=== PATIENT | female | born 1995 | race Caucasian/White ===

== ENCOUNTER 2018-04-19 11:33 | Emergency (ER) | payer BC, OTHER ==
[2018-04-19] MEDS ORDERED: LIDOCAINE 2% VISCOUS SOLN 20 ML UDCUP PO ONE (11:54)
--- NOTE | 2018-04-19 12:14 | ER Document Report ---
ED General - General Chief Complaint: Nausea Stated Complaint: COUGH Time Seen by Provider: 04/19/18 11:40 Notes: Patient is a 23-year-old female, currently approximately 5 weeks gravid that presents to the emergency department for chief complaint of cough and sore throat. Patient reports having symptoms for approximately 3 days, she states she did cough up some yellow sputum as well. She feels a tightness in her chest to a degree. She denies shortness of breath or difficulty breathing. She does have parasternal pain with coughing. Denies any fevers, chills, abdominal pain, vomiting, diarrhea, dysuria, hematuria, vaginal bleeding or discharge. Past Medical History: Denies chronic medical conditions Past Surgical History: Denies surgical history Social History: Denies tobacco, alcohol or illicit drug use Family History: Reviewed and noncontributory for presenting illness Allergies: Reviewed, see documented allergy list. REVIEW OF SYSTEMS: Other than noted above, the 12 point review of systems was reviewed with the patient and were negative, all pertinent findings are included in the HPI. PHYSICAL EXAMINATION: Vital signs reviewed, nursing noted reviewed. GENERAL: Well-appearing, well-nourished and in no acute distress. HEAD: Atraumatic, normocephalic. EYES: Eyes appear normal, extraocular movements intact, sclera anicteric, conjunctiva are normal. ENT: nares patent, oropharynx is mildly erythematous, with bilateral small tonsillar exudates. Moist mucous membranes. NECK: Normal range of motion, supple a few small prominent anterior cervical lymph nodes, without significant tenderness LUNGS: Breath sounds clear to auscultation bilaterally and equal. No wheezes rales or rhonchi. HEART: Regular rate and rhythm without murmurs ABDOMEN: Soft, nontender, normoactive bowel sounds. No rebound, guarding, or rigidity. No masses appreciated. EXTREMITIES: Nontender, good range of motion, no pitting or edema. NEUROLOGICAL: No focal neurological deficits. Moves all extremities spontaneously Motor and sensory grossly intact on exam. PSYCH: Normal mood, normal affect. SKIN: Warm, Dry, normal turgor, no rashes or lesions noted on exposed skin TRAVEL OUTSIDE OF THE [place] IN LAST 30 DAYS: No - Related Data Allergies/Adverse Reactions: ciprofloxacin [From Cipro] Adverse Reaction (Intermediate, Verified 04/19/18 11: 39) Light headed Past Medical History - Social History Smoking Status: Never Smoker Chew tobacco use (# tins/day): No Frequency of alcohol use: None Drug Abuse: None Family History: Reviewed & Not Pertinent Patient has suicidal ideation: No Patient has homicidal ideation: No Renal/ Medical History: Denies: Hx Peritoneal Dialysis Physical Exam - Vital signs Vitals: Temp Pulse Resp BP Pulse Ox 98.3 F 71 18 124/82 98 04/19/18 11:38 04/19/18 11:38 04/19/18 11:38 04/19/18 11:38 04/19/18 11:38 Course - Re-evaluation Re-evalutation: Patient appears well on exam, will swab her for strep, and influenza, obtain EKG given that she had chest tightness, that was related to her coughing. Will avoid chest x-ray as the patient is , and her lungs are clear, vital signs stable, not hypoxic, low suspicion for pneumonia. Patient will be given viscous lidocaine for her sore throat Influenza and strep testing negative Patient will be discharged home with a prescription for fluticasone nasal spray , to help with some of her symptoms including congestion, and sore throat, advised to follow-up with her primary care physician or with [facility] INSPECTOR, patient was agreeable to this plan of care, given strict return precautions, which she was agreeable to. - Vital Signs Vital signs: Temp Pulse Resp BP Pulse Ox 99.0 F 66 18 126/65 H 100 04/19/18 12:46 04/19/18 12:46 04/19/18 11:38 04/19/18 12:46 04/19/18 12:46 - EKG Interpretation by Me Additional EKG results interpreted by me: EKG demonstrates sinus rhythm with a ventricular rate of 70 bpm, normal axis, normal intervals, no evidence of acute ischemia on this EKG. No prior for comparison. Discharge - Discharge Clinical Impression: URI (upper respiratory infection) Qualifiers: URI type: unspecified URI Qualified Code(s): J06.9 - Acute upper respiratory infection, unspecified Condition: Stable Disposition: HOME, SELF-CARE Instructions: Upper Respiratory Illness ([facility]) Additional Instructions: If your symptoms worsen or do not improve, do not hesitate to return to the emergency department repeat evaluation. Prescriptions: Fluticasone Propionate [Flonase Nasal [place] 50 Mcg/[place] 16 gm] 1 spray NASL Q12 #1 inhaler Forms: Return to Work Referrals: SHUKRI SANCHEZ PA-C [Primary Care Provider] - Follow up in 3-5 days
[2018-04-19 12:26] LABS: A TYPE INFLUENZA AG NEGATIVE (NEGATIVE); B INFLUENZA AG NEGATIVE (NEGATIVE)
[2018-04-19] MEDS ORDERED: FLUTICASONE NASAL SPRAY 50 MCG/SPRY 120 SPRAY/16 GM NASL ONE (12:41)
[2018-04-19 12:46] VITALS: BP 126/65
--- NOTE | 2018-04-19 15:40 | EKG REPORT ---
SEVERITY:- NORMAL ECG - SINUS RHYTHM : Confirmed by: Aneta Moya MD 19-Apr-2018 15:39:26
== END 2018-04-19 13:25 | disposition home or self-care (01) ==
LOC: ER 11:33
DX: J06.9 Acute upper respiratory infection, unspecified (principal); R11.0 Nausea; Z88.3 Allergy status to other anti-infective agents
CPT/HCPCS: 93005; 99283; 87070; 87880; 87804; 93010; J3490; 87077

== ENCOUNTER 2018-07-18 14:27 | Emergency (ER) | payer BC ==
[2018-07-18 15:02] LABS: APPEARANCE,URINE CLEAR; BILIRUBIN,URINE NEGATIVE (NEGATIVE); COLOR,URINE YELLOW; GLUCOSE, URINE NEGATIVE (NEGATIVE); KETONES,URINE NEGATIVE (NEGATIVE); LEUKOCYTE ESTERASE,URINE NEGATIVE (NEGATIVE); NITRITE,URINE NEGATIVE (NEGATIVE); PROTEIN,URINE NEGATIVE (NEGATIVE); URINE SPECIFIC GRAVITY 1.027
[2018-07-18 15:31] VITALS: BP 118/62
== END 2018-07-18 18:23 | disposition left against medical advice (07) ==
LOC: ER 14:27
DX: Z53.21 Procedure and treatment not carried out due to patient leaving prior to being seen by health care provider (principal)
CPT/HCPCS: 81001; 81025

== ENCOUNTER 2018-12-05 13:59 | Outpatient (CLI) | payer BC, MEDICAID, OTHER ==
--- NOTE | 2018-12-05 14:43 | Non Stress Test Report ---
Non Stress Test Datetime Report Generated by CPN: 12/05/2018 14:42 DEMOGRAPHIC EGA NST: 39.3 INDICATION Indication for Study: Other MONITORING Monitor Explained: Monitor Explained; Test Explained; Patient Verbalized Understanding Time on Monitor: 12/05/2018 14:14 Time off Monitor: 12/05/2018 14:39 NST Duration: 25 NST INTERVENTIONS NST Interventions: None Physician Notified NST: A Galindo CNM BABY A: [id number] BABY A Movement : Present Contraction Frequency : 3-5 FHR Baseline : 125 Accelerations : 15X15 Decelerations : None Variability : Moderate 6-25bpm NST Review: Meets Criteria for Reactive NST NST Review and Verified By : Fiorella Carrillo RN NST Results: Reactive NST REPORT Report Trigger: Send Report
[2018-12-05 15:56] LABS: APPEARANCE,URINE CLEAR; COLOR,URINE YELLOW
[2018-12-05 15:57] LABS: BILIRUBIN,URINE NEGATIVE (NEGATIVE); GLUCOSE, URINE NEGATIVE (NEGATIVE); KETONES,URINE NEGATIVE (NEGATIVE); LEUKOCYTE ESTERASE,URINE TRACE (NEGATIVE); NITRITE,URINE NEGATIVE (NEGATIVE); PROTEIN,URINE 30 mg/dL (NEGATIVE); URINE SPECIFIC GRAVITY 1.025
[2018-12-05 16:17] LABS: URINE AMPHETAMINES SCREEN NEGATIVE; URINE BARBITURATES SCREEN NEGATIVE; URINE BENZODIAZEPINES SCREEN NEGATIVE; URINE COCAINE SCREEN NEGATIVE; URINE MARIJUANA (THC) SCREEN NEGATIVE; URINE METHADONE SCREEN NEGATIVE; URINE PHENCYCLIDINE SCREEN NEGATIVE
[2018-12-05] MEDS ORDERED: HYDROXYZINE PAMOATE 50 MG CAPSULE ONE (16:40)
[2018-12-05] MEDS ORDERED: HYDROXYZINE PAMOATE 25 MG CAPSULE PO ONE (17:00)
== END 2018-12-05 16:53 | disposition home or self-care (01) ==
LOC: LC 13:59
PROVIDERS: ATTEND Obstetrics & Gynecology
PROC: 4A1HXCZ Monitoring of Products of Conception, Cardiac Rate, External Approach (ICD-10-PCS; principal; 2018-12-05)
DX: O47.1 False labor at or after 37 completed weeks of gestation (principal); Z3A.39 39 weeks gestation of pregnancy
CPT/HCPCS: 59025; 81005; 80307; J3490 ×2

== ENCOUNTER 2018-12-05 23:19 | Outpatient (CLI) | payer MEDICAID ==
--- NOTE | 2018-12-06 01:00 | Non Stress Test Report ---
Non Stress Test Datetime Report Generated by CPN: 12/06/2018 00:59 DEMOGRAPHIC EGA NST: 39.3 INDICATION Indication for Study: Ordered by Provider MONITORING Monitor Explained: Monitor Explained; Test Explained; Patient Verbalized Understanding Time on Monitor: 12/05/2018 23:28 Time off Monitor: 12/06/2018 00:43 NST Duration: 75 NST INTERVENTIONS NST Interventions: PO Hydration Physician Notified NST: Dr. Bright BABY A Movement : Present Contraction Frequency : 5-8 FHR Baseline : 120 Accelerations : 15X15 Decelerations : None Variability : Moderate 6-25bpm NST Review: Meets Criteria for Reactive NST NST Review and Verified By : NATALIE Murray Results: Reactive NST REPORT Report Trigger: Send Report
== END 2018-12-06 00:57 | disposition home or self-care (01) ==
LOC: LC 23:19
PROVIDERS: ATTEND Obstetrics & Gynecology
PROC: 4A1HXCZ Monitoring of Products of Conception, Cardiac Rate, External Approach (ICD-10-PCS; principal; 2018-12-05)
DX: O47.1 False labor at or after 37 completed weeks of gestation (principal); Z3A.39 39 weeks gestation of pregnancy
CPT/HCPCS: 59025

== ENCOUNTER 2018-12-06 11:53 | Inpatient (IN) | payer MEDICAID ==
[2018-12-06] MEDS ORDERED: PENICILLIN G-K 5 MILLION UNIT VIAL ONE ×3 (12:22→20:43)
--- NOTE | 2018-12-06 12:29 | Admission Physical ---
Datetime Report Generated by CPN: 12/06/2018 12:29 CURRENT ADMISSION Chief Complaint: Uterine Contractions Admit Impression : Term, Intrauterine ; Active Labor; Intact Membranes Admit Plan: Admit to Unit ALLERGIES Medication Allergies: Yes Medication Allergies: ciprofloxacin/MO/Light headed (12/06/2018) Latex: No Latex Allergies Food Allergies: n/a Environmental Allergies: n/a OBSTETRICAL HISTORY EDC: 12/09/2018 00:00 : 1 Para: 0 Term: 0 : 0 SAB: 0 IAB: 0 Ectopic: 0 Livin Cesareans: 0 VBACs: 0 Multiple Births: 0 Gestational Diabetes: No Rh Sensitization: No Incompetent Cervix: No NAE: No Infertility: No ART Treatment: No Uterine Anomaly: No IUGR: No Hx Previous C/S: No Macrosomia: No Hx Loss/Stillborn: No PIH: No Hx : No Placenta Previa/Abruption: No Depression/PP Depression: No PTL/PROM: No Post Hemorrhage: No Current Procedures: Ultrasound Obstetrical History Comments: G1- current SEE RECORDS Alcohol: No Marijuana : No Cocaine: No Other Illicit Drugs: No Cigarettes: Never Smoker. [id number] MEDICAL HISTORY Diabetes: No Blood Transfusion: No Pulmonary Disease (Asthma, TB): No Breast Disease: No Hypertension: No Manager Technical Training Surgery: No Heart Disease: No Hosp/Surgery: No Autoimmune Disorder: No Anesthetic Complications: No Kidney Disease: No Abnormal Pap Smear: No Neuro/Epilepsy: No Psychiatric Disorders: No Other Medical Diseases: No Hepatitis/Liver Disease: No Significant Family History: No Varicosities/Phlebitis: No Trauma/Violence : No Thyroid Dysfunction: No INFECTIOUS HISTORY Gonorrhea: No Genital Herpes: No Chlamydia: No Tuberculosis: No Syphilis: No Hepatitis: No HIV/AIDS Exposure: No Rash or Viral Illness: No HPV: No PHYSICAL EXAM General: Normal HEENT: Normal Neurologic: Normal Thyroid: Normal Heart: Normal Lungs: Normal Breast: Normal Back: Normal Abdomen: Normal Genitourinary Exam: Normal Extremities: Normal DTRs: Normal Pelvic Type: Adequate Vital Signs: Reviewed VAGINAL EXAM Dilatation: 6 Effacement: 100 Station: -1 MEMBRANES Membranes: Intact FETUS A EGA: 39.4 Monitoring: External US FHR- Baseline: 120 Variability: Moderate 6-25bpm Accelerations: 15X15 Decelerations: None Admit Comment: presents c/o increasing contractions at 39.4 wks. Denies SROM. GBS +. VE 5-6/ 100/ -1, vtx. Pt desires an epidural. Will admit, start PCN prophylaxis and pt may have an epidural. Attending MD is Dr Isai PLANS FOR LABOR AND DELIVERY Labor and Delivery: None Pain Management: Epidural Feeding Preference: Both Benefit of Breast Feed Discussed: Yes Circumcision: N/A INFORMED CONSENT Assignment: Dianne Alex MD Signature: with User ID: Vanita : with User ID: Vanita
[2018-12-06] MEDS ORDERED: RINGERS SOLUTION,LACTATED 1,000 ML IV ONE (12:30)
[2018-12-06] MEDS: RINGERS SOLUTION,LACTATED 1,000 ML IV PRN ×4 (12:38→15:51)
[2018-12-06 13:09] LABS: ABSOLUTE BASOPHILS # (AUTO) 0.1 10^3/uL (0.0-0.2); ABSOLUTE EOSINOPHILS # (AUTO) 0.1 10^3/uL (0.0-0.6); ABSOLUTE LYMPHOCYTES (AUTO) 1.4 10^3/uL (0.5-4.7); ABSOLUTE MONOCYTES (AUTO) 0.8 10^3/uL (0.1-1.4); ABSOLUTE NEUT (AUTO) 17.6 10^3/uL (1.7-8.2); BASOPHILS % (AUTO) 0.4 % (0-2); EOSINOPHILS % (AUTO) 0.3 % (0-6); HEMATOCRIT 32.2 % (36.0-47.0); HEMOGLOBIN 10.1 g/dL (12.0-15.5); MEAN CORPUSCULAR HEMOGLOBIN 20.9 pg (27.0-33.4); MEAN CORPUSCULAR HGB CONC 31.2 g/dL (32.0-36.0); MEAN CORPUSCULAR VOLUME 67 fl (80-97); PLATELET COUNT 337 10^3/uL (150-450); RED CELL DISTRIBUTION WIDTH 18.2 % (11.5-14.0); SEGMENTED NEUTROPHILS % (AUTO) 88.3 % (42-78); TOTAL CELLS COUNTED % (AUTO) 100 %; WHITE BLOOD COUNT 19.9 10^3/uL (4.0-10.5)
[2018-12-06] MEDS ORDERED: OXYTOCIN/NORMAL SALINE 20 UNIT/1,000 ML RTUINJ ONE (13:32)
[2018-12-06] MEDS ORDERED: LIDOCAINE 1% INJ-PF (10 MG/ML) 30 ML SDV ONE (13:32)
[2018-12-06] MEDS ORDERED: MISOPROSTOL 0.2 MG TABLET ONE (13:32)
[2018-12-06] MEDS ORDERED: OXYTOCIN 10 UNIT/ML VIAL ONE (13:32)
[2018-12-06] MEDS ORDERED: FENTANYL CITRATE INJ/PF 100 MCG/2 ML AMPUL ONE (13:51)
[2018-12-06] MEDS ORDERED: PHENYLEPHRINE HCL INJ/PF 10 MG/1 ML SDV ONE (13:51)
[2018-12-06] MEDS ORDERED: EPHEDRINE SULFATE INJ 50 MG/1 ML AMPULE ONE (13:51)
[2018-12-06] MEDS ORDERED: BUPIVACAINE HCL 0.25 % INJ/PF (2.5 MG/1 ML) 30 ML VIAL ONE (13:52)
[2018-12-06] MEDS ORDERED: FENTANYL/BUPIVACAINE/NS/PF 300 MCG/150 ML RTUINJ EPI ONE (13:52)
--- NOTE | 2018-12-06 14:35 | Warning Signs in Babies ---
VOD Warning Signs Datetime Report Generated by [facility]: 12/06/2018 14:34 VOD#608 -Warning Signs in Babies: Viewed with Parent(s)/Family (12/06/2018 14:34:Reed Dutton RN)
[2018-12-06 15:47] LABS: URINE AMPHETAMINES SCREEN NEGATIVE; URINE BARBITURATES SCREEN NEGATIVE; URINE BENZODIAZEPINES SCREEN NEGATIVE; URINE COCAINE SCREEN NEGATIVE; URINE MARIJUANA (THC) SCREEN NEGATIVE; URINE METHADONE SCREEN NEGATIVE; URINE PHENCYCLIDINE SCREEN NEGATIVE
[2018-12-06 16:13] LABS: APPEARANCE,URINE CLEAR; BILIRUBIN,URINE NEGATIVE (NEGATIVE); COLOR,URINE YELLOW; GLUCOSE, URINE NEGATIVE (NEGATIVE); KETONES,URINE 300 mg/dL (NEGATIVE)
[2018-12-06 16:14] LABS: LEUKOCYTE ESTERASE,URINE NEGATIVE (NEGATIVE); NITRITE,URINE NEGATIVE (NEGATIVE); PROTEIN,URINE 30 mg/dL (NEGATIVE); UROBILINOGEN,URINE NEGATIVE mg/dL (<2.0)
[2018-12-06] MEDS: PENICILLIN G POTASSIUM 2,500,000 UNIT in DEXTROSE 5%-WATER 50 ML IV SCH ×2 (16:24→20:51)
[2018-12-06] MEDS ORDERED: LIDOCAINE 2%/EPINEPHRINE INJ 20 ML VIAL ONE (19:42)
[2018-12-06] MEDS ORDERED: SODIUM BICARBONATE 8.4% INJ 50 MEQ/50 ML DISP.SYRIN ONE (19:43)
[2018-12-06] MEDS ORDERED: DIBUCAINE 1% OINTMENT 56 GM TP PRN (23:07)
[2018-12-06] MEDS ORDERED: MEASLES,MUMPS&RUBELLA VACC/PF 0.5 ML VIAL SUBCUT PRN (23:07)
[2018-12-06] MEDS ORDERED: DIPH/PERTUSS(ACELL)/TETANUS VAC/PF 0.5 ML SYR (>=10YO) IM PRN (23:07)
[2018-12-06] MEDS ORDERED: MAGNESIUM HYDROXIDE SUSP 30 ML UDCUP PO PRN (23:07)
[2018-12-06] MEDS ORDERED: NA PHOS,M-B/NA PHOS,DI-BA (ADULT) 133 ML ENEMA PR PRN (23:07)
[2018-12-06] MEDS ORDERED: OXYTOCIN/NORMAL SALINE 20 UNIT/1,000 ML RTUINJ IV PRN (23:07)
[2018-12-06] MEDS ORDERED: PROMETHAZINE HCL 25 MG TABLET PO PRN (23:07)
[2018-12-06] MEDS ORDERED: ACETAMINOPHEN 650 MG SUPP.RECT PR PRN (23:07)
[2018-12-06] MEDS ORDERED: DIPHENHYDRAMINE HCL 25 MG CAPSULE PO PRN (23:07)
[2018-12-06] MEDS ORDERED: BENZOCAINE/MENTHOL AEROSOL SPRAY 56 ML TOP PRN (23:07)
[2018-12-06] MEDS ORDERED: ACETAMINOPHEN WITH CODEINE #3 TABLET PO PRN ×2 (23:07)
[2018-12-06] MEDS ORDERED: PROMETHAZINE HCL INJ 25 MG/1 ML VIAL IV PRN (23:07)
[2018-12-06] MEDS ORDERED: PROMETHAZINE HCL 25 MG SUPP.RECT PR PRN (23:07)
[2018-12-06] MEDS ORDERED: ZOLPIDEM TARTRATE 5 MG TABLET PO PRN (23:07)
[2018-12-06] MEDS ORDERED: GLYCERIN/WITCH HAZEL LEAF 1 EACH MED..WIPE TP PRN (23:07)
[2018-12-06] MEDS ORDERED: PSEUDOEPHEDRINE HCL 30 MG TABLET PO PRN (23:07)
[2018-12-06] MEDS ORDERED: AMPICILLIN SOD/SULBACTAM 3 GM VIAL IV ONE (23:12)
--- NOTE | 2018-12-06 23:44 | Delivery Summary ---
Del Sum A-C Datetime Report Generated by CPN: 12/06/2018 23:44 DELIVERY PERSONNEL DELIVERY PERSONNEL: [id number] Delivery Doctor:: Dianne Alex MD Labor and Delivery Nurse:: Jackie Valero RNpizzamaker Nurse:: Asya Cordero RNC Nursery Nurse:: Crista Franco RN Nursery Nurse:: Nicole Stafford RN Digital Sales Executive/WASHERETTE MACHINE OPERATOR: [place], ST MATERNAL INFORMATION Delivery Anesthesia: Epidural Medications After Delivery: Pitocin Drip 20 Units/1000ml NSS Estimated Blood Loss (ml): 200 Maternal Complications: None LABOR SUMMARY EDC: 12/09/2018 00:00 No. Babies in Womb: 1 Attempted: No Labor Anesthesia: Epidural LABOR INFORMATION Reason for Induction: Not Applicable Onset of Labor: 12/06/2018 12:30 Complete Dilatation: 12/06/2018 22:03 Oxytocin: N/A Group B Beta Strep: positive Antibiotics # of Doses: 3 Antibiotics Time of Last Dose: 2029 Name of Antibiotic Given: penicillin Steroids Given: None Reason Steroids Not Administered: Not Applicable MEMBRANES Membranes Rupture Method: Artificial Rupture of Membranes: 12/06/2018 17:16 Length of Rupture (hr): 5.72 Amniotic Fluid Color: Moderate Meconium Amniotic Fluid Amount: Moderate Amniotic Fluid Odor: Normal STAGES OF LABOR Stage 1 hr: 9 Stage 1 min: 33 Stage 2 hr: 0 Stage 2 min: 56 Stage 3 hr: 0 Stage 3 min: 3 Total Time in Labor hr: 10 Total Time in Labor min: 32 VAGINAL DELIVERY Episiotomy: None Laceration #1: None Laceration Extension #1: N/A Laceration Repair: No Sponge Count Correct: N/A Sharps Count Correct: N/A CSECTION DELIVERY Primary Indication: N/A Secondary Indication: N/A CSection Incidence: N/A Labor: N/A Elective: N/A CSection Incision: N/A BABY A INFORMATION Delivery Date/Time: 12/06/2018 22:59 Method of Delivery: Vaginal Born in Route : No : N/A Forceps: N/A Vacuum Extraction: N/A Shoulder Dystocia : No PRESENTATION/POSITION BABY A Presentation: Cephalic Cephalic Presentation: Vertex Vertex Position: Left Occipital Anterior Breech Presentation: N/A PLACENTA INFORMATION BABY A Placenta Delivery Time : 12/06/2018 23:02 Placenta Method of Delivery: Spontaneous Placenta Status: Delivered SCORES BABY A Heart Rate 1 min: >100 bpm Resp Effort 1 min: Good Cry Reflex Irritability 1 min: Cough or Sneeze or Pulls Away Muscle Tone 1 min: Active Motion Color 1 min: Blue/Pale Resuscitation Effort 1 min: Tactile Stimulation SCORE 1 MIN: 8 Heart Rate 5 min: >100 bpm Resp Effort 5 min: Good Cry Reflex Irritability 5 min: Cough or Sneeze or Pulls Away Muscle Tone 5 min: Active Motion Color 5 min: Body White Bird, Extremities Blue Resuscitation Effort 5 min: Tactile Stimulation SCORE 5 MIN: 9 INFORMATION BABY A Gestational Age at Delivery: 39.4 Gestational Status: Full Term- 39- 40.6 Weeks Outcome : Liveborn Condition : Stable Infant Sex: Female IDENTIFICATION BABY A Infant Verification Date/Time: 12/06/2018 23:15 ID Band Number: [id number] Mother's Name Verified: Yes Infant RN Verifying Infant: ElviraNATALIE Moses Additional Verifying Personnel: US Ashutosh WEIGHT/LENGTH BABY A Infant Birthweight (gm): 3060 Infant Weight (lb): 6 Infant Weight (oz): 12 Length (in): 19.75 Infant Length (cm): 50.17 CORD INFORMATION BABY A No. Cord Vessels: 3 Nuchal Cord : Around Neck x1, Loose Cord Blood Taken: Yes-For Storage (Mom's Blood type +) Suction: None ASSESSMENT BABY A Skin to Skin: Yes BABY B INFORMATION : N/A SIGNATURES Signature: with User ID: [email or web address]
[2018-12-07] MEDS ORDERED: FAMOTIDINE 20 MG TABLET ONE (00:39)
[2018-12-07] MEDS ORDERED: AMPICILLIN SOD/SULBACTAM 3 GM VIAL ONE (00:39)
[2018-12-07] MEDS: FAMOTIDINE 20 MG TABLET PO SCH ×3 (00:54→21:41)
[2018-12-07] MEDS: IBUPROFEN 800 MG TABLET PO SCH ×3 (05:43→21:41)
[2018-12-07 06:50] LABS: HEMATOCRIT 27.2 % (36.0-47.0); HEMOGLOBIN 8.5 g/dL (12.0-15.5); MEAN CORPUSCULAR HEMOGLOBIN 21.1 pg (27.0-33.4); MEAN CORPUSCULAR HGB CONC 31.2 g/dL (32.0-36.0); MEAN CORPUSCULAR VOLUME 68 fl (80-97); PLATELET COUNT 273 10^3/uL (150-450); RED BLOOD COUNT 4.03 10^6/uL (3.72-5.28); RED CELL DISTRIBUTION WIDTH 18.3 % (11.5-14.0); WHITE BLOOD COUNT 20.9 10^3/uL (4.0-10.5)
[2018-12-07] MEDS: PENICILLIN G POTASSIUM 2,500,000 UNIT in DEXTROSE 5%-WATER 50 ML IV SCH (07:30)
[2018-12-07] MEDS: PRENATAL VITAMIN W DHA CAPSULE PO SCH (09:50)
[2018-12-07] MEDS: SENNOSIDES/DOCUSATE 8.6-50 MG 1 EACH TABLET PO SCH (09:50)
[2018-12-07] MEDS: DOCUSATE SODIUM 100 MG CAPSULE PO SCH ×2 (09:50→17:11)
[2018-12-07] MEDS: FERROUS SULFATE 325 MG TABLET PO SCH ×2 (09:50→17:11)
--- NOTE | 2018-12-07 10:01 | PDOC PROGRESS REPORT ---
Subjective-OB Progress Note for:: 12/07/18 Subjective: Pt doing well, resting in bed with baby. She denies pain, reports regular diet, voiding without difficulty and light bleeding. Physical Exam (OB) Vital Signs: Temp Pulse Resp BP Pulse Ox 98.1 F 73 16 127/85 H 99 12/07/18 07:32 12/07/18 07:32 12/07/18 07:32 12/07/18 07:32 12/07/18 07:32 Intake & Output 12/06/18 12/07/18 12/08/18 06:59 06:59 06:59 Intake Total 403 1999 Balance 403 1999 Weight 99.6 kg - Lochia Lochia Amount: Scant < 10 ml Lochia Color: Rubra/Red - Abdomen Description: Soft Hernia Present: No Fundal Description: Firm, Midline Fundal Height: u/u - u/2 Objective-Diagnostic Laboratory: 12/07/18 06:20 12/06/18 12/06/18 12/06/18 12:55 12:55 14:18 WBC 19.9 H RBC 4.80 Hgb 10.1 L Hct 32.2 L MCV 67 L MCH 20.9 L MCHC 31.2 L RDW 18.2 H Plt Count 337 Seg Neutrophils % 88.3 H Lymphocytes % 7.0 L Monocytes % 4.0 Eosinophils % 0.3 Basophils % 0.4 Absolute Neutrophils 17.6 H Absolute Lymphocytes 1.4 Absolute Monocytes 0.8 Absolute Eosinophils 0.1 Absolute Basophils 0.1 Urine Color YELLOW Urine Appearance CLEAR Urine pH 5.0 Ur Specific Mckenna 1.020 Urine Protein 30 H Urine Glucose (UA) NEGATIVE Urine Ketones 300 H Urine Blood NEGATIVE Urine Nitrite NEGATIVE Ur Leukocyte Esterase NEGATIVE Urine WBC (Auto) 2 Urine RBC (Auto) 2 Blood Type AB POSITIVE Antibody Screen NEGATIVE 12/07/18 06:20 WBC 20.9 H RBC 4.03 Hgb 8.5 L Hct 27.2 L MCV 68 L MCH 21.1 L MCHC 31.2 L RDW 18.3 H Plt Count 273 Seg Neutrophils % Lymphocytes % Monocytes % Eosinophils % Basophils % Absolute Neutrophils Absolute Lymphocytes Absolute Monocytes Absolute Eosinophils Absolute Basophils Urine Color Urine Appearance Urine pH Ur Specific Mckenna Urine Protein Urine Glucose (UA) Urine Ketones Urine Blood Urine Nitrite Ur Leukocyte Esterase Urine WBC (Auto) Urine RBC (Auto) Blood Type Antibody Screen Assessment and Plan(PN) - Assessment and Plan (1) Vaginal delivery Is this a current diagnosis for this admission?: Yes - Time Spent with Patient Time with patient: Less than 15 minutes Medications reviewed and adjusted accordingly: Yes - Disposition Anticipated Discharge: Home Within: within 24 hours
[2018-12-08] MEDS: IBUPROFEN 800 MG TABLET PO SCH ×3 (05:45→21:06)
[2018-12-08 07:38] LABS: ABSOLUTE EOSINOPHILS # (AUTO) 0.1 10^3/uL (0.0-0.6); ABSOLUTE LYMPHOCYTES (AUTO) 3.2 10^3/uL (0.5-4.7); ABSOLUTE MONOCYTES (AUTO) 0.9 10^3/uL (0.1-1.4); ABSOLUTE NEUT (AUTO) 8.7 10^3/uL (1.7-8.2); BASOPHILS % (AUTO) 0.2 % (0-2); EOSINOPHILS % (AUTO) 0.8 % (0-6); HEMATOCRIT 27.4 % (36.0-47.0); HEMOGLOBIN 8.7 g/dL (12.0-15.5); LYMPHOCYTES % (AUTO) 24.4 % (13-45); MEAN CORPUSCULAR HEMOGLOBIN 21.5 pg (27.0-33.4); MEAN CORPUSCULAR HGB CONC 31.7 g/dL (32.0-36.0); MEAN CORPUSCULAR VOLUME 68 fl (80-97); MONOCYTES % (AUTO) 7.2 % (3-13); PLATELET COUNT 265 10^3/uL (150-450); RED BLOOD COUNT 4.04 10^6/uL (3.72-5.28); RED CELL DISTRIBUTION WIDTH 18.6 % (11.5-14.0); SEGMENTED NEUTROPHILS % (AUTO) 67.4 % (42-78); TOTAL CELLS COUNTED % (AUTO) 100 %
--- NOTE | 2018-12-08 10:20 | PDOC PROGRESS REPORT ---
Subjective-OB Progress Note for:: 12/08/18 Subjective: Ready for discharge. Physical Exam (OB) Vital Signs: Temp Pulse Resp BP Pulse Ox 98.0 F 61 16 150/90 H 99 12/08/18 08:02 12/08/18 08:02 12/08/18 08:02 12/08/18 08:02 12/08/18 08:02 Intake & Output 12/07/18 12/08/18 12/09/18 06:59 06:59 06:59 Intake Total 403 2000 Balance 403 1999 Weight 99.6 kg - PIH/Pre-Eclampsia DTR's: 2 + Clonus: Negative Headache: Absent Epigastric Pain: No Visual Changes: No - Lochia Lochia Amount: Scant < 10 ml Lochia Color: Rubra/Red - Abdomen Description: Soft, Round Hernia Present: No Bowel Sounds: Normoactive Flatus Presence: Present Stool: No Fundal Description: Firm, Midline Fundal Height: u/u - u/2 Objective-Diagnostic Laboratory: 12/08/18 06:50 12/08/18 06:50 WBC 13.0 H RBC 4.04 Hgb 8.7 L Hct 27.4 L MCV 68 L MCH 21.5 L MCHC 31.7 L RDW 18.6 H Plt Count 265 Seg Neutrophils % 67.4 Lymphocytes % 24.4 Monocytes % 7.2 Eosinophils % 0.8 Basophils % 0.2 Absolute Neutrophils 8.7 H Absolute Lymphocytes 3.2 Absolute Monocytes 0.9 Absolute Eosinophils 0.1 Absolute Basophils 0.0 Assessment and Plan(PN) - Time Spent with Patient Medications reviewed and adjusted accordingly: Yes - Disposition Anticipated Discharge: Home
--- NOTE | 2018-12-08 10:28 | PDOC DISCHARGE SUMMARY ---
Final Diagnosis Discharge Date: 12/08/18 Discharge Data - Discharge Medication Prescriptions: Docusate Sodium [Colace 100 mg Capsule] 100 mg PO BID #30 capsule Ferrous Sulfate [Feosol 325 mg Tablet] 325 mg PO BID #60 tablet Ibuprofen [Motrin 800 mg Tablet] 800 mg PO Q8 #30 tablet Home Medications: Ranitidine HCl [Zantac 75 mg Tablet] 75 mg PO PRN PRN 12/06/18 Docusate Sodium [Colace 100 mg Capsule] 100 mg PO BID #30 capsule 12/08/18 Ferrous Sulfate [Feosol 325 mg Tablet] 325 mg PO BID #60 tablet 12/08/18 Ibuprofen [Motrin 800 mg Tablet] 800 mg PO Q8 #30 tablet 12/08/18 Gestational Age: 39.4 wks Reason(s) for Admission: Onset of Labor Procedures: Ultrasound Intrapartum Procedure(s): Spontaneous Vaginal Delivery - [place] Data Baby 1 Female at 1 minute: 8 at 5 minutes: 9 Weight: 3.062 kg Home with Mother: Yes Complications: No - Diagnosis Test Laboratory: Temp Pulse Resp BP Pulse Ox 98.2 F 72 15 145/88 H 100 12/08/18 10:09 12/08/18 10:09 12/08/18 10:09 12/08/18 10:09 12/08/18 10:09 12/06/18 12/06/18 12/07/18 12:55 14:18 06:20 RBC 4.80 4.03 Hgb 10.1 L 8.5 L Hct 32.2 L 27.2 L Urine Opiates Screen NEGATIVE 12/08/18 06:50 RBC 4.04 Hgb 8.7 L Hct 27.4 L Urine Opiates Screen - Discharge information/Instructions Discharge Activity: Activity As Tolerated, Balance Activity w/Rest, Pelvic Rest, Slowly Increase Activity, No tub bath Discharge Diet: Regular Disposition: HOME, SELF-CARE Follow up with: [facility] in: 1, Weeks
[2018-12-08] MEDS: FERROUS SULFATE 325 MG TABLET PO SCH ×2 (10:54→17:48)
[2018-12-08] MEDS: PRENATAL VITAMIN W DHA CAPSULE PO SCH (10:54)
[2018-12-08] MEDS: SENNOSIDES/DOCUSATE 8.6-50 MG 1 EACH TABLET PO SCH (10:54)
[2018-12-08] MEDS: DOCUSATE SODIUM 100 MG CAPSULE PO SCH ×2 (10:54→17:48)
[2018-12-08] MEDS: FAMOTIDINE 20 MG TABLET PO SCH ×2 (10:54→21:06)
[2018-12-08 19:55] VITALS: BP 137/80
== END 2018-12-08 21:50 | disposition home or self-care (01) | DRG 807 ==
LOC: LC 11:53 → LR 12:28 → 2S 12-07 01:22
PROVIDERS: ADMIT Obstetrics & Gynecology; ATTEND Obstetrics & Gynecology
PROC: 10E0XZZ Delivery of Products of Conception, External Approach (ICD-10-PCS; principal; 2018-12-06)
PROC: 10907ZC Drainage of Amniotic Fluid, Therapeutic from Products of Conception, Via Natural or Artificial Opening (ICD-10-PCS; 2018-12-06)
PROC: 4A1HX4Z Monitoring of Products of Conception, Cardiac Electrical Activity, External Approach (ICD-10-PCS; 2018-12-06)
DX: O99.824 Streptococcus B carrier state complicating childbirth (principal); Z37.0 Single live birth; O69.81X0 Labor and delivery complicated by cord around neck, without compression, not applicable or unspecified; Z3A.39 39 weeks gestation of pregnancy; Z88.3 Allergy status to other anti-infective agents; O77.0 Labor and delivery complicated by meconium in amniotic fluid
CPT/HCPCS: 36415; 80307; 81001; 85025; 85027; 86592; 86850; 86900; 86901; J0295; J2370; J2540; J2590; J3010; J3490

== ENCOUNTER 2020-03-18 12:41 | Emergency (ER) | payer OTHER, MEDICAID ==
[2020-03-18 13:18] VITALS: BP 134/78
--- NOTE | 2020-03-18 13:43 | ER Document Report ---
ED Medical Screen (RME) - General Stated Complaint: CHEST PAIN Time Seen by Provider: 03/18/20 13:35 Primary Care Provider: DIRK BUCHANAN MD [Primary Care Provider] - Follow up as needed TRAVEL OUTSIDE OF THE [place] IN LAST 30 DAYS: No - HPI Notes: 03/18/20 13:41 24-year-old female to the emergency department with complaints of midsternal chest pain that is been constant for the past 2 days. She states it is fairly uncomfortable. She states in the past that she has had muscular and cartilage pain in the same area and use muscle relaxant and NSAIDs but that has not been working for the past 2 days. She states it feels different than chest pain in the past. A little bit worse when she moves around but not worse when she takes a big deep breath. She states that she has a little bit of radiation into the right shoulder. Denies shortness of breath, nausea, vomiting, or diaphoresis. She is a non-smoker. She does not have high blood pressure, diabetes, hyperlipidemia. She is not on any exogenous hormones. She denies any leg swelling. She is never had a clot in her leg. She denied recent surgery. I performed a brief medical screening exam on the patient determined that the patient needs further evaluation and management by main side provider. I have placed initial orders to help expedite care. - Related Data Allergies/Adverse Reactions: ciprofloxacin [From Cipro] Adverse Reaction (Intermediate, Verified 03/18/20 13:36) Light headed Past Medical History - Social History Frequency of alcohol use: None Drug Abuse: None Renal/ Medical History: Denies: Hx Peritoneal Dialysis Physical Exam - Vital signs Vitals: Temp Pulse Resp BP Pulse Ox 98.1 F 60 16 134/78 H 100 03/18/20 13:17 03/18/20 13:17 03/18/20 13:17 03/18/20 13:17 03/18/20 13:17 Course - Vital Signs Vital signs: Temp Pulse Resp BP Pulse Ox 98.1 F 60 16 134/78 H 100 03/18/20 13:17 03/18/20 13:17 03/18/20 13:17 03/18/20 13:17 03/18/20 13:17 Doctor's Discharge - Discharge Referrals: DIRK BUCHANAN MD [Primary Care Provider] - Follow up as needed
[2020-03-18 14:28] LABS: ABSOLUTE BASOPHILS # (AUTO) 0.1 10^3/uL (0.0-0.2); ABSOLUTE EOSINOPHILS # (AUTO) 0.1 10^3/uL (0.0-0.6); ABSOLUTE LYMPHOCYTES (AUTO) 2.8 10^3/uL (0.5-4.7); ABSOLUTE MONOCYTES (AUTO) 0.5 10^3/uL (0.1-1.4); ABSOLUTE NEUT (AUTO) 5.5 10^3/uL (1.7-8.2); BASOPHILS % (AUTO) 0.8 % (0-2); EOSINOPHILS % (AUTO) 1.6 % (0-6); HEMATOCRIT 36.9 % (36.0-47.0); HEMOGLOBIN 12.7 g/dL (12.0-15.5); MEAN CORPUSCULAR HEMOGLOBIN 27.7 pg (27.0-33.4); MEAN CORPUSCULAR HGB CONC 34.6 g/dL (32.0-36.0); MEAN CORPUSCULAR VOLUME 80 fl (80-97); MONOCYTES % (AUTO) 5.5 % (3-13); PLATELET COUNT 342 10^3/uL (150-450); RED BLOOD COUNT 4.59 10^6/uL (3.72-5.28); RED CELL DISTRIBUTION WIDTH 14.8 % (11.5-14.0); SEGMENTED NEUTROPHILS % (AUTO) 61.1 % (42-78); TOTAL CELLS COUNTED % (AUTO) 100 %
[2020-03-18 14:31] LABS: INTERNATIONAL RATION (INR) 1.05; PROTHROMBIN TIME 13.9 SEC (11.4-15.4)
[2020-03-18 14:32] LABS: PARTIAL THROMBOPLASTIN TIME 29.7 SEC (23.5-35.8)
[2020-03-18 14:51] LABS: ALBUMIN 4.2 g/dL (3.5-5.0); ALKALINE PHOSPHATASE 76 U/L (38-126); ANION GAP 8 (5-19); ASPARTATE AMINO TRANSFERASE 20 U/L (14-36); BILIRUBIN,DIRECT 0.3 mg/dL (0.0-0.4); BILIRUBIN,TOTAL 0.6 mg/dL (0.2-1.3); BLOOD UREA NITROGEN 12 mg/dL (7-20); CALCIUM 9.5 mg/dL (8.4-10.2); CARBON DIOXIDE 24 mmol/L (22-30); CHLORIDE 106 mmol/L (98-107); GLUCOSE 95 mg/dL (75-110); POTASSIUM 4.1 mmol/L (3.6-5.0); TOTAL PROTEIN 7.2 g/dL (6.3-8.2)
--- NOTE | 2020-03-18 15:14 | RADIOLOGY REPORT (SQ) ---
EXAM DESCRIPTION: CHEST 2 VIEWS IMAGES COMPLETED DATE/TIME: 03/18/2020 3:05 pm REASON FOR STUDY: chest pain COMPARISON: None. EXAM PARAMETERS: NUMBER OF VIEWS: two views TECHNIQUE: Digital Frontal and Lateral radiographic views of the chest acquired. RADIATION DOSE: NA LIMITATIONS: none FINDINGS: LUNGS AND PLEURA: No opacities, masses or pneumothorax. No pleural effusion. MEDIASTINUM AND HILAR STRUCTURES: No masses or contour abnormalities. HEART AND VASCULAR STRUCTURES: Heart normal size. No evidence for failure. BONES: No acute findings. HARDWARE: None in the chest. OTHER: No other significant finding. IMPRESSION: NO ACUTE RADIOGRAPHIC FINDING IN THE CHEST. TECHNICAL DOCUMENTATION: JOB ID: [id number] 2010 [employer]- All Rights Reserved Reading location - IP/workstation name: [email or web address]
--- NOTE | 2020-03-18 18:48 | EKG REPORT ---
SEVERITY:- NORMAL ECG - SINUS RHYTHM : Confirmed by: Denis Constantino MD 18-Mar-2020 18:48:14
== END 2020-03-18 20:39 | disposition left against medical advice (07) ==
LOC: ER 12:41
DX: R07.9 Chest pain, unspecified (principal); Z53.20 Procedure and treatment not carried out because of patient's decision for unspecified reasons
CPT/HCPCS: 36415; 71046; 80053; 83735; 84484; 85025; 85610; 85730; 93005; 93010; 99281